=== PATIENT | male | born 2000 | race American Indian/Alaskan Native ===

== ENCOUNTER 2020-07-13 08:02 | Emergency (ER) | payer OTHER, MEDICAID ==
[2020-07-13] MEDS ORDERED: Sodium Chloride 0.9% 1,000 ML IV ONE ×2 (08:03→08:30)
[2020-07-13] MEDS ORDERED: Lactated Ringers 1,000 ML IV ONE ×2 (08:03→08:31)
[2020-07-13] MEDS ORDERED: fentaNYL 100 MCG/2 ML SDV IVPUSH ONE ×2 (08:32→10:33)
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
[2020-07-13 08:44] LABS: ANION GAP 19.5 mEq/L (7-13); CHLORIDE,CL 104 mmol/L (98-107); SODIUM,NA 140 mmol/L (136-145)
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
[2020-07-13] MEDS ORDERED: fentaNYL 100 MCG/2 ML SDV ONE (09:05)
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
== END 2020-07-13 10:28 ==
LOC: EDBD → DL.ED 08:02
DX: S09.90XA Unspecified injury of head, initial encounter (principal); S32.402A Unspecified fracture of left acetabulum, initial encounter for closed fracture; S32.301A Unspecified fracture of right ilium, initial encounter for closed fracture; S32.10XA Unspecified fracture of sacrum, initial encounter for closed fracture; S32.592A Other specified fracture of left pubis, initial encounter for closed fracture; V89.2XXA Person injured in unspecified motor-vehicle accident, traffic, initial encounter
CPT/HCPCS: 36415; 71045; 72170; 80053; 80307; 83605; 85025; 85610; 85730; 86850; 86900; 86901; 93005; 96374; 96376; 99284; 99285; J3010; J7030; J7120